=== PATIENT | female | born 1960 | race Caucasian/White ===

== ENCOUNTER → 2017-02-02 | Outpatient (CLI) | payer OTHER | LOC: FIMAGING 09:30 | PROVIDERS: ATTEND Family Medicine | DX: Z12.31 Encounter for screening mammogram for malignant neoplasm of breast (principal) | CPT/HCPCS: G0202 ==

== ENCOUNTER → 2018-03-26 | Outpatient (CLI) | payer OTHER | LOC: FIMAGING 07:22 | PROVIDERS: ATTEND Radiology Diagnostic Radiology | DX: I83.893 Varicose veins of bilateral lower extremities with other complications (principal) ==

== ENCOUNTER → 2018-04-24 | Outpatient (CLI) | payer OTHER | LOC: FIMAGING 16:12 | PROVIDERS: ATTEND Family Medicine | DX: Z12.31 Encounter for screening mammogram for malignant neoplasm of breast (principal) ==

== ENCOUNTER 2018-06-24 02:42 | Emergency (ER) | payer OTHER ==
[2018-06-24] MEDS ORDERED: HYDROCODONE/APAP 5/325 TAB PO ONE (03:03)
--- NOTE | 2018-06-24 03:19 | EDPHY ---
H & P Stated Complaint: R SIDED JAW PAIN ON ABX SINCE MONDAY Time Seen by Provider: 06/24/18 02:51 HPI/ROS: HPI The patient presents with right-sided jaw pain which she has experienced in some degree since May of this year. It has been right-sided though has moved somewhat. She was initially seen by her dentist and then and certified nursing assistant instructor. X-rays were performed and she was told that the pain was not coming from a dental source. She over Thanksgiving had a URI type of illness and had swollen right-sided cervical lymphadenopathy. This improved, however 2 days ago she saw her primary care doctor because of congestion again and increased swelling of her right jaw as well as increased pain and was started on doxycycline which she is taking. She reports that the pain is now more severe, throbbing, and keeping her from sleep. Pain is worse when eating food on that side. She does not have any hot or cold sensitivities there. She has not had a fever. She does not note any swelling that she can tell of her right mandible. She does not have neck pain. REVIEW OF SYSTEMS 10 systems were reviewed and negative with the exception of the elements mentioned in the history of present illness. PMHx: Hypertension Soc Hx: FHx: PHYSICAL General Appearance: Alert, no distress Eyes: Pupils equal and round no pallor or injection ENT, Mouth: There is mild right-sided cervical anterior lymphadenopathy, her right lower 2nd molar is tender to palpation, there is no area of fluctuance appreciated along the gum line, Mucous membranes moist Respiratory: Breathing comfortably Neurological: A&O, moves all extremities Skin: Warm and dry, no rashes Musculoskeletal: Neck is supple non tender Extremities: symmetrical, full range of motion Psychiatric: Patient is oriented X 3, there is no agitation Source: Patient Exam Limitations: No limitations - Personal History Current Tetanus Diphtheria and Acellular Pertussis (TDAP): Yes - Medical/Surgical History Hx Asthma: No Hx Chronic Respiratory Disease: No Hx Diabetes: No Hx Cardiac Disease: No Hx Renal Disease: No Hx Cirrhosis: No Hx Alcoholism: No Hx HIV/AIDS: No Hx Splenectomy or Spleen Trauma: No Other PMH: HTN, APPY, , HYSTERECTOMY - Social History Smoking Status: Never smoked Constitutional: Initial Vital Signs Temperature (C) 36.5 C 06/24/18 02:48 Heart Rate 70 06/24/18 02:48 Respiratory Rate 16 06/24/18 02:48 Blood Pressure 185/83 H 06/24/18 02:48 O2 Sat (%) 99 06/24/18 02:48 O2 Delivery Mode Room Air Allergies/Adverse Reactions: amoxicillin Allergy (Verified 06/24/18 02:48) Home Medications: Medication Instructions Recorded Blood Pressure Med 06/24/18 Medical Decision Making - Diagnostics Imaging Results: CT max face with contrast demonstrates no abscess, discussed with Dr. Centeno of Radiology. Imaging: Discussed imaging studies w/ on call Radiologist, I viewed and interpreted images myself Differential Diagnosis: 57-year-old female presents with progressive right-sided jaw pain, unable to sleep tonight, currently on day 2 of doxycycline for possible infection. Here, she has full range of motion of her jaw with no TMJ tenderness, she has exquisite tenderness to palpation of her 2nd lower right molar. I do not appreciate any areas of fluctuance, she does have cervical lymphadenopathy on the right side. Plan for CT scan to further evaluate for any abscess. Patient received Ringgold while in the emergency department and had significant improvement in her symptoms. CT scan was performed and was normal, not demonstrating any fluid collection or osteomyelitis. Patient feels comfortable going home continuing her course of doxycycline for the full 1 week. I have advised her to follow up with her dentist if the pain remains similar in nature. I will give her a pill pack of Ringgold to use on an as -needed basis for severe pain. - Data Points Laboratory Results: 06/24/18 03:19 POC Hgb 14.6 gm/dL gm/dL (12.6-16.3) POC Hct 43 % % (38-47) POC Sodium 142 mEq/L mEq/L (135-145) POC Potassium 3.5 mEq/L mEq/L (3.3-5.0) POC Chloride 102 mEq/L mEq/L (97-110) POC BUN 18 mg/dL mg/dL (7-23) POC Creatinine 0.9 mg/dL mg/dL (0.6-1.0) POC Glucose 97 mg/dL mg/dL (70-100) Medications Given: Discontinued Medications Hydrocodone Bitart/Acetaminophen (Ringgold 5/325) 2 tab PO EDNOW ONE Stop: 06/24/18 03:04 Last Admin: 06/24/18 03:06 Dose: 2 tab Hydrocodone Bitart/Acetaminophen (Ringgold 5/325mg Prepack#6) 1 btl TAKEENID EDNOW ONE Stop: 06/24/18 04:32 Last Admin: 06/24/18 04:34 Dose: 1 btl Point of Care Test Results: Chemistry 06/24/18 03:19 POC Sodium 142 mEq/L mEq/L (135-145) POC Potassium 3.5 mEq/L mEq/L (3.3-5.0) POC Chloride 102 mEq/L mEq/L (97-110) POC BUN 18 mg/dL mg/dL (7-23) POC Creatinine 0.9 mg/dL mg/dL (0.6-1.0) POC Glucose 97 mg/dL mg/dL (70-100) ISTAT H&H 06/24/18 03:19 POC Hgb 14.6 gm/dL gm/dL (12.6-16.3) POC Hct 43 % % (38-47) Departure - Departure Disposition: Home, Routine, Self-Care Clinical Impression: Pain in mandible Condition: Good Instructions: Hydrocodone/Acetaminophen (By mouth), Toothache (ED) Additional Instructions: I recommend you take ibuprofen 400 mg with acetaminophen 650 mg every 6 hr as needed for your pain. If your pain is severe, you can take the pain pills I have given you. However, you should not take these with acetaminophen. Return to the ER if worse in any way. I do recommend that you follow up with your dentist if the pain continues after taking the course of antibiotics. Referrals: Courtney Bradley MD [Primary Care Provider] - As per Instructions
[2018-06-24] MEDS ORDERED: HYDROCOD/APAP 5/325 PREPACK#6 BTL TAKEHOME ONE (04:31)
[2018-06-24 04:38] VITALS: BP 168/72
== END 2018-06-24 04:37 | disposition home or self-care (01) ==
DX: R68.84 Jaw pain (principal); I10 Essential (primary) hypertension
CPT/HCPCS: 82435-PO; 82565-PO; 82947-PO; 84132-PO; 84295-PO; 84520-PO; 85014-PO